=== PATIENT | female | born 1985 | race Caucasian/White ===

== ENCOUNTER 2023-01-06 15:18 | Inpatient (IN) | payer OTHER ==
[2023-01-06 15:57] LABS: #Eosinphils 0.1 thou/uL (0.0-0.7); #Monocytes 0.6 thou/uL (0.11-0.59); #Neutrophils 7.9 thou/uL (1.40-6.50); %Basophils 0.4 % (0.0-1.0); %Eosinophils 1.1 % (0.0-10.0); %Lymphocytes 15.1 % (21.0-51.0); %Monocytes 6.3 % (0.0-10.0); %Neutrophils 76.8 % (42.0-75.0); Hemoglobin 12.7 g/dL (12.0-16.0); Mean Corpuscular HGB CONC 31.8 g/dL (32.0-36.0); Mean Corpuscular Volume 88.1 fl (78.0-98.0); Mean Platelet Volume 9.6 fL (7.4-10.4); Platelet Count 447 10x3/uL (130-400); Red Blood Cell (RBC) Count 4.54 mill/uL (4.20-5.40); White Blood Cell (WBC) Count 10.2 10x3/uL (4.8-10.8)
[2023-01-06 16:30] LABS: Albumin 4.2 g/dL (3.5-5.0); Calcium 9.3 mg/dL (7.8-10.44); Chloride 107 mmol/L (98-107); Globulin 3.4 g/dL (2.4-3.5); Glucose 101 mg/dL (70-105); Potassium 3.6 mmol/L (3.5-5.1); Protein, Total 7.6 g/dL (6.0-8.3); Sodium 139 mmol/L (136-145)
[2023-01-06 16:32] LABS: Anion Gap 14 mmol/L (10-20); Bilirubin, Total 0.2 mg/dL (0.2-1.2); Carbon Dioxide 22 mmol/L (22-29)
[2023-01-06 16:33] LABS: Alkaline Phosphatase 99 U/L (40-110); Calc. Creatinine Clearance 0 mL/min (70-130); Estimated GFR 109
[2023-01-06 16:34] LABS: BUN (Urea Nitrogen) 9 mg/dL (7.0-18.7)
[2023-01-06 16:35] LABS: AST (SGOT) 12 U/L (5-34)
[2023-01-06 16:36] LABS: ALT (SGPT) 14 U/L (8-55)
[2023-01-06] MEDS ORDERED: Cefepime 2 GM VIAL ONE (17:43)
[2023-01-06] MEDS ORDERED: Ketorolac Tromethamine 30 MG/ML VIAL ONE (17:54)
[2023-01-06] MEDS ORDERED: Ondansetron PF 4 MG/2 ML Vial ONE (17:54)
[2023-01-06] MEDS ORDERED: Morphine 4 MG/ML VIAL ONE ×2 (17:54→19:53)
[2023-01-06 18:06] LABS: Magnesium 2.1 mg/dL (1.6-2.6)
[2023-01-06] MEDS ORDERED: Vancomycin 1 GM/200 ML (FROZEN) BAG ONE (18:23)
[2023-01-06] MEDS ORDERED: Acetaminophen 325 MG TAB PO PRN (19:32)
[2023-01-06] MEDS ORDERED: Ondansetron PF 4 MG/2 ML Vial IVP PRN (19:32)
[2023-01-06] MEDS ORDERED: Sodium Chloride 0.9% 1,000 ML IV SCH (19:45)
[2023-01-06 21:14] VITALS: BMI 30.9
[2023-01-06] MEDS ORDERED: Vancomycin HCl 500 MG in Sodium Chloride 0.9% 100 ML IVPB SCH (22:00)
[2023-01-07] MEDS: Cefepime 2 GM in Sodium Chloride 0.9% 100 ML IVPB SCH ×2 (05:10→19:30)
[2023-01-07 06:43] LABS: Hematocrit 35.8 % (36.0-47.0); Hemoglobin 11.3 g/dL (12.0-16.0); Mean Corpuscular HGB CONC 31.6 g/dL (32.0-36.0); Mean Corpuscular Hemoglobin 28.7 pg (27.0-31.0); Mean Platelet Volume 9.6 fL (7.4-10.4); Platelet Count 380 10x3/uL (130-400); RBC Distribution Width 14.3 % (11.5-14.5); Red Blood Cell (RBC) Count 3.94 mill/uL (4.20-5.40); White Blood Cell (WBC) Count 5.9 10x3/uL (4.8-10.8)
[2023-01-07 06:51] LABS: Delete Auto Diff?? YES; Manual Diff?? YES; Mean Corpuscular Volume 90.9 fl (78.0-98.0)
[2023-01-07 07:13] LABS: Band 4 % (5-11); CellaVision Operator ID lab.dlt; Eosinophils 3 % (0-10); Large Platelets 6.1 % (0-5); Lymphocytes 18 % (21-51); Monocytes 11 % (0-10); Neutrophil 64 % (42-75); Platelet Adequacy Comment Platelets Normal; Total Cell Count 99
[2023-01-07 07:25] LABS: Anion Gap 13 mmol/L (10-20); BUN (Urea Nitrogen) 14 mg/dL (7.0-18.7); Calc. Creatinine Clearance 152 mL/min (70-130); Calcium 8.5 mg/dL (7.8-10.44); Carbon Dioxide 21 mmol/L (22-29); Chloride 111 mmol/L (98-107); Estimated GFR 117; Glucose 92 mg/dL (70-105); Sodium 141 mmol/L (136-145)
[2023-01-07] MEDS: Morphine 2 MG/ML VIAL SLOW IVP PRN ×4 (10:39→23:28)
[2023-01-07] MEDS: Acetaminophen 500 MG TAB PO SCH ×3 (11:11→23:28)
[2023-01-07] MEDS: traMADol HCl 50 MG TAB PO PRN ×2 (11:12→19:52)
[2023-01-07] MEDS: VANCOMYCIN 1.25 GM/250 ML BAG 1.25 GM in Premix Bag 1 BAG IVPB SCH ×3 (13:08→14:56)
[2023-01-08] MEDS: VANCOMYCIN 1.25 GM/250 ML BAG 1.25 GM in Premix Bag 1 BAG IVPB SCH ×2 (03:00→15:49)
[2023-01-08] MEDS: Morphine 2 MG/ML VIAL SLOW IVP PRN ×4 (04:47→21:21)
[2023-01-08] MEDS: Acetaminophen 500 MG TAB PO SCH ×5 (04:47→23:14)
[2023-01-08] MEDS ORDERED: Sevoflurane 250 ML INH ANEST BOTTLE ONE (04:55)
[2023-01-08] MEDS: Cefepime 2 GM in Sodium Chloride 0.9% 100 ML IVPB SCH (06:02)
[2023-01-08] MEDS ORDERED: Midazolam HCl 2 mg/2 ml Vial ONE ×2 (07:42→09:03)
[2023-01-08] MEDS ORDERED: fentaNYL PF 100 MCG/2 ML SYRINGE ONE (07:52)
[2023-01-08] MEDS ORDERED: Ondansetron PF 4 MG/2 ML Vial ONE (08:16)
[2023-01-08] MEDS ORDERED: Dexamethasone 20 MG/5 ML VIAL ONE (08:16)
[2023-01-08] MEDS ORDERED: Lidocaine 1% PF 5 ML VIAL ONE (08:16)
[2023-01-08] MEDS ORDERED: PROPOFOL 200 MG/20 ML VIAL ONE (08:16)
[2023-01-08 08:28] LABS: Pregnancy Test - Urine (BHCG) Negative (Negative); Pregu Control Background? CLEAR/WHITE (CLR/WHITE); Pregu Control Bar Appear? YES (CONTROL BAR); Specific Gravity 1.012 (1.002-1.036)
[2023-01-08] MEDS ORDERED: Bupivacaine PF 0.5% 30 ML VIAL ONE (08:38)
[2023-01-08] MEDS ORDERED: EPINEPHrine 1 MG/ML AMP ONE (08:38)
[2023-01-08] MEDS ORDERED: Ketorolac Tromethamine 30 MG/ML VIAL ONE (09:06)
[2023-01-08] MEDS ORDERED: Ondansetron HCl/PF 4 MG/2 ML Vial IVP PRN (09:08)
[2023-01-08] MEDS ORDERED: Ketorolac Tromethamine 30 MG/ML VIAL IVP PRN (09:08)
[2023-01-08] MEDS ORDERED: Promethazine HCl 25 MG/ML VIAL IM PRN (09:08)
[2023-01-08] MEDS ORDERED: fentaNYL 50 mcg/mL 1 mL Vial ONE (09:14)
[2023-01-08] MEDS ORDERED: Promethazine HCl 25 MG/ML VIAL ONE (09:15)
[2023-01-08] MEDS: traMADol HCl 50 MG TAB PO PRN ×2 (10:13→23:14)
[2023-01-08] MEDS ORDERED: Ipratropium/Albuterol 3 ML NEB NEB PRN (12:15)
[2023-01-09] MEDS: Morphine 2 MG/ML VIAL SLOW IVP PRN ×4 (00:25→17:57)
[2023-01-09 01:34] LABS: Vancomycin, Trough 9.2 ug/mL
[2023-01-09] MEDS: VANCOMYCIN 1.25 GM/250 ML BAG 1.25 GM in Premix Bag 1 BAG IVPB SCH (02:34)
[2023-01-09] MEDS: Vancomycin 1 GM in Premix Bag 1 BAG IVPB SCH ×3 (02:40→17:57)
[2023-01-09] MEDS: Acetaminophen 500 MG TAB PO SCH ×4 (04:00→23:32)
[2023-01-09] MEDS: HYDROcodone/Acetaminophen 7.5/325 mg Tablet PO PRN ×3 (09:57→21:11)
[2023-01-09] MEDS: traMADol HCl 50 MG TAB PO PRN ×2 (16:12→23:32)
[2023-01-09 18:09] LABS: #Basophils 0.1 thou/uL (0.0-0.2); #Eosinphils 0.2 thou/uL (0.0-0.7); #Monocytes 0.8 thou/uL (0.11-0.59); #Neutrophils 6.2 thou/uL (1.40-6.50); %Basophils 0.5 % (0.0-1.0); %Eosinophils 2.2 % (0.0-10.0); %Lymphocytes 26.9 % (21.0-51.0); %Monocytes 7.8 % (0.0-10.0); %Neutrophils 62.3 % (42.0-75.0); Hematocrit 36.7 % (36.0-47.0); Hemoglobin 11.5 g/dL (12.0-16.0); Mean Corpuscular HGB CONC 31.3 g/dL (32.0-36.0); Mean Corpuscular Hemoglobin 28.3 pg (27.0-31.0); Mean Corpuscular Volume 90.2 fl (78.0-98.0); Mean Platelet Volume 9.2 fL (7.4-10.4); Platelet Count 475 10x3/uL (130-400); RBC Distribution Width 14.1 % (11.5-14.5); Red Blood Cell (RBC) Count 4.07 mill/uL (4.20-5.40); White Blood Cell (WBC) Count 9.9 10x3/uL (4.8-10.8)
[2023-01-09 18:37] LABS: Anion Gap 12 mmol/L (10-20); BUN (Urea Nitrogen) 13 mg/dL (7.0-18.7); Calc. Creatinine Clearance 124 mL/min (70-130); Calcium 8.7 mg/dL (7.8-10.44); Carbon Dioxide 22 mmol/L (22-29); Chloride 109 mmol/L (98-107); Estimated GFR 96; Glucose 80 mg/dL (70-105); Sodium 139 mmol/L (136-145)
[2023-01-10 01:44] LABS: Vancomycin, Trough 11.5 ug/mL
[2023-01-10] MEDS: Vancomycin 1 GM in Premix Bag 1 BAG IVPB SCH ×3 (02:44→18:03)
[2023-01-10] MEDS: Morphine 2 MG/ML VIAL SLOW IVP PRN ×2 (02:47→11:01)
[2023-01-10] MEDS: Acetaminophen 500 MG TAB PO SCH ×3 (05:43→17:58)
[2023-01-10] MEDS: HYDROcodone/Acetaminophen 7.5/325 mg Tablet PO PRN (09:33)
[2023-01-10 12:26] VITALS: BP 128/84; TEMP 98.1
== END 2023-01-10 19:38 | disposition home or self-care (01) | DRG 571 ==
LOC: ERS 15:18 → SURG B 19:32
PROVIDERS: ADMIT Internal Medicine; ATTEND Internal Medicine
PROC: 0JBN0ZZ Excision of Right Lower Leg Subcutaneous Tissue and Fascia, Open Approach (ICD-10-PCS; principal; 2023-01-08)
DX: L03.115 Cellulitis of right lower limb (principal); I96 Gangrene, not elsewhere classified; F17.210 Nicotine dependence, cigarettes, uncomplicated; F41.9 Anxiety disorder, unspecified; Z98.890 Other specified postprocedural states
CPT/HCPCS: 36415; 80048; 80053; 80202; 81025; 83605; 83735; 83880; 85025; 87040; 88305; 88312; 93970; 96361; 96365; 96375; 96376; 97139; J0171; J0692; J1100; J1885; J2250; J2270; J2272; J2405; J2550; J2704; J3010; J3370; J3370-JW; J3490; J7050; S0020